=== PATIENT | female | born 1995 | race Caucasian/White ===

== ENCOUNTER 2025-01-25 21:11 | Emergency (ER) | payer OTHER ==
[~2025-01-25] VITALS: Ht 160 cm; Wt 72.0 kg
[2025-01-25 21:31] VITALS: TEMP 37; O2SAT 100
[2025-01-25] MEDS ORDERED: SULF1TAB48 MT (22:19)
[2025-01-25] MEDS ORDERED: IBUP-1455 MT (22:19)
[2025-01-25 22:34] VITALS: BP 139/76; PULSE 96; RESP 18; O2SAT 99
== END 2025-01-25 22:36 | disposition home or self-care (01) ==
LOC: ER 21:11
DX: N75.0 Cyst of Bartholin's gland (principal)
CPT/HCPCS: 56405; 99284; Z7610